=== PATIENT | male | born 1950 | race African-American/Black ===

== ENCOUNTER 2016-09-29 21:14 | Inpatient (IN) | payer MEDICARE, OTHER ==
[~2016-09-29] VITALS: Ht 160 cm; Wt 69.9 kg
--- NOTE | 2016-09-29 21:34 | NUR ---
Patient BIB private ambulance for Medical Clearance and GPS admission. Patient arrives medically cleared from [facility]. Patient arrives on 5150 hold for GD. Per hold, patient became combative during a neurological examination at [facility]. Per hold, patient beleives it is 1940 and that he thought he was at home when he was in [facility]. ER. To room 3A. Original 5150 hold not present, ambulance will return to obtain.
[2016-09-29] MEDS ORDERED: NIAC500T2 PO (22:29)
[2016-09-29] MEDS ORDERED: ATOR10TA PO (22:29)
[2016-09-29] MEDS ORDERED: QUET25TA PO (22:29)
[2016-09-29] MEDS ORDERED: OMEP20CA10 PO (22:29)
[2016-09-29] MEDS ORDERED: BLOO-360 IN (22:29)
[2016-09-29] MEDS ORDERED: ACET-2154 PO (22:29)
[2016-09-29] MEDS ORDERED: MULT1TAB73 PO (22:29)
[2016-09-29] MEDS ORDERED: SITA100T PO (22:29)
[2016-09-29] MEDS ORDERED: DONE10TA11 PO (22:29)
[2016-09-29] MEDS ORDERED: METF500T4 PO (22:29)
[2016-09-29] MEDS ORDERED: LEVE250T2 PO (22:29)
[2016-09-29] MEDS ORDERED: AMLO5TAB4 PO (22:29)
[2016-09-29] MEDS ORDERED: LORA-258 PO (22:29)
[2016-09-29] MEDS ORDERED: ALLO100T PO (22:29)
[2016-09-29] MEDS ORDERED: DOCU100C36 PO (22:29)
--- NOTE | 2016-09-29 23:17 | NUR ---
Pt. admitted to GPS, under care of Dr. Yen Belongs List completed
[2016-09-29] MEDS ORDERED: TEMAZEPAM 7.5 MG CAPSULE PO PRN (23:30)
[2016-09-29] MEDS ORDERED: MAG HYDROX/AL HYDROX/SIMETH 30 ML LIQUID UDC PO PRN (23:30)
[2016-09-29] MEDS ORDERED: MAGNESIUM HYDROXIDE 30 ML LIQUID UDC PO PRN (23:30)
--- NOTE | 2016-09-30 01:00 | NUR ---
ADMITTED 65 YEAR OLD AA MALE ON 5150 FOR GD. UPON FACE TO FACE EVALUATION, PT IS CONFUSED AND DISORGANIZED, SLOW TO RESPOND OR NO RESPONSE AT ALL. DELAYED AND PRESSURED SPEECH, MUMBLING AT TIMES. UNABLE TO SIGN ADMISSION PAPERS. UNKEMPT APPEARANCE, UNABLE TO STATE WHERE HE IS AND WHY HE IS HERE, ADMIT ORDERS OBTAINED FROM PSYCH DOCTOR, WILL CONTINUE TO MONITOR CLOSELY.
[2016-09-30 01:14] VITALS: BP 129/68
[2016-09-30] MEDS ORDERED: LORAZEPAM 1 MG TABLET ONE (01:44)
[2016-09-30] MEDS ORDERED: ACETAMINOPHEN 325 MG TABLET ONE (01:44)
[2016-09-30] MEDS: LORAZEPAM 1 MG TABLET PO PRN (01:46)
[2016-09-30] MEDS: ACETAMINOPHEN 325 MG TABLET PO PRN (01:47)
[2016-09-30 07:30] VITALS: BP 123/72
[2016-09-30] MEDS ORDERED: Medication Not On Formulary EA (Omeprazole 20 MG) PO SCH (10:15)
[2016-09-30] MEDS: LEVETIRACETAM 250 MG TABLET PO SCH ×2 (10:15→17:00)
[2016-09-30] MEDS ORDERED: INSULIN REGULAR, HUMAN 300 UNIT/3 ML VIAL SQ PRN (10:15)
[2016-09-30] MEDS ORDERED: DEXTROSE 50% 50 ML DISP.SYRIN IV PRN (10:15)
[2016-09-30] MEDS ORDERED: Medication Not On Formulary EA (Sitagliptin Phosphate (Januvia) 100 MG) PO SCH (10:15)
[2016-09-30] MEDS: PANTOPRAZOLE SODIUM 40 MG TABLET.DR PO SCH (10:45)
[2016-09-30] MEDS: BLOOD SUGAR DIAGNOSTIC 1 EACH STRIP VI SCH ×3 (11:30→21:35)
[2016-09-30] MEDS: METFORMIN HCL 500 MG TABLET PO SCH ×2 (12:00→17:00)
[2016-09-30 16:00] VITALS: BP 116/58
[2016-09-30] MEDS: DOCUSATE SODIUM 100 MG CAPSULE PO SCH (17:00)
[2016-09-30] MEDS: ATORVASTATIN 10 MG TABLET PO SCH (21:34)
[2016-09-30] MEDS: HALOPERIDOL 2 MG TABLET PO SCH (21:34)
--- NOTE | 2016-09-30 22:00 | NUR ---
received to care, lying in bed, isolative, but pleasant when approached. compliant with medications and staff assistance. no combative or aggressive behavior noted. assisted by staff with feeding the rest of his dinner. fluids given. as of 2199, he appears to be asleep. no distress noted. will continue to monitor closely.
--- NOTE | 2016-10-01 00:13 | NUR ---
PRN RESTORIL WAS GIVEN FOR RESTLESSNESS/INSOMNIA
--- NOTE | 2016-10-01 00:45 | NUR ---
appears to be asleep. no distress noted.
--- NOTE | 2016-10-01 06:00 | NUR ---
slept 8 hours. is now awake. refused am accucheck, and protonix. appears distracted by internal stimuli.
[2016-10-01] MEDS: PANTOPRAZOLE SODIUM 40 MG TABLET.DR PO SCH (06:36)
[2016-10-01] MEDS: BLOOD SUGAR DIAGNOSTIC 1 EACH STRIP VI SCH ×4 (06:36→21:00)
[2016-10-01] MEDS: METFORMIN HCL 500 MG TABLET PO SCH ×3 (08:00→17:00)
[2016-10-01] MEDS ORDERED: Medication Not On Formulary EA (Multivitamins (Multivitamin) 1 EACH) PO SCH (09:00)
[2016-10-01] MEDS: LINAGLIPTIN 5 MG TABLET PO SCH (09:00)
[2016-10-01] MEDS: DIVALPROEX 250 MG TABLET.DR PO SCH ×3 (09:00→17:00)
[2016-10-01] MEDS: HALOPERIDOL 2 MG TABLET PO SCH ×3 (09:00→17:00)
[2016-10-01] MEDS: DOCUSATE SODIUM 100 MG CAPSULE PO SCH ×2 (09:00→17:00)
[2016-10-01] MEDS: LEVETIRACETAM 250 MG TABLET PO SCH ×2 (09:00→17:00)
[2016-10-01] MEDS: MULTIVITAMINS,THERAPEUTIC TABLET PO SCH (09:00)
[2016-10-01] MEDS: AMLODIPINE 5 MG TABLET PO SCH (09:00)
[2016-10-01] MEDS: ALLOPURINOL 100 MG TABLET PO SCH (09:00)
--- NOTE | 2016-10-01 09:28 | NUR ---
Initial discharge instructions: The patient resides at [facility] [[facility] [place] [address] ]. SW will contact the facility to see if they will be accepting the patient back upon discharge. GINGER spoke with the patient's brother Zach Mendiola who stated that the would like for the patient to return to the facility upon discharge. GINGER will speak with the patient, family, and MD regarding most appropriate discharge plan. SS will form a safe and proper discharge.
[2016-10-01 15:29] VITALS: BP 119/64
--- NOTE | 2016-10-01 18:46 | NUR ---
pt resistive all shift to taking meds and having bloog sugar checked cursining at times attempteed to talk pt into taking meds with no avail continue to monitor behavior
[2016-10-01] MEDS: ATORVASTATIN 10 MG TABLET PO SCH (21:00)
[2016-10-02] MEDS: LORAZEPAM 1 MG TABLET PO PRN (06:54)
[2016-10-02] MEDS: ACETAMINOPHEN 325 MG TABLET PO PRN (06:54)
[2016-10-02] MEDS: BLOOD SUGAR DIAGNOSTIC 1 EACH STRIP VI SCH ×3 (06:54→16:30)
[2016-10-02] MEDS: PANTOPRAZOLE SODIUM 40 MG TABLET.DR PO SCH (06:55)
[2016-10-02] MEDS: LEVETIRACETAM 250 MG TABLET PO SCH ×2 (06:59→08:55)
--- NOTE | 2016-10-02 07:06 | NUR ---
Nursing notes:GPS Patient has been refusing to taking meds, including keppra and having bloog sugar (accu-checks).At Approximately 0640, while in bed, patient had a seizure. It lasted approx 30 seconds. vital signs were taken:b/p 154/72mmHg, pulse 100bpm; O2sat 95%, temp 100.2; respiration 20breaths/min. BS 150. Dr. Parker office was called at approx 0645. and left message. at approx 0650 Ativan 1mg PO, Keppra 250mg PO and Tylenol 650mg PO was given to patient. At approx 0654, Dr Calderon called back, he was informed of patient's seizure and temperature. Per Dr. Calderon, to continue encouraging patient to take his medication. He also stated that is elevated temp is due to the seizure. we will continue to monitor.
[2016-10-02 07:30] VITALS: BP 125/83
[2016-10-02] MEDS: HALOPERIDOL 2 MG TABLET PO SCH ×3 (08:55→17:00)
[2016-10-02] MEDS: DIVALPROEX 250 MG TABLET.DR PO SCH ×3 (08:55→17:00)
[2016-10-02] MEDS: LINAGLIPTIN 5 MG TABLET PO SCH (08:55)
[2016-10-02] MEDS: ALLOPURINOL 100 MG TABLET PO SCH (08:55)
[2016-10-02] MEDS: DOCUSATE SODIUM 100 MG CAPSULE PO SCH ×2 (08:56→17:00)
[2016-10-02] MEDS: AMLODIPINE 5 MG TABLET PO SCH (08:56)
[2016-10-02] MEDS: MULTIVITAMINS,THERAPEUTIC TABLET PO SCH (09:01)
[2016-10-02] MEDS: METFORMIN HCL 500 MG TABLET PO SCH ×3 (09:16→17:00)
--- NOTE | 2016-10-02 15:30 | NUR ---
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 MEALS HELD TO PREVENT ASPIRATION PNEUMONIA. DRUM CLEANER ORDERED TO TRANSFER PATIENT TO MEDICAL FLOOR FOR HIGHER LEVEL OF CARE. 1545 DRUM CLEANER NOTIFIED NEED A SITTER WHEN MOVE TO MEDICAL FLOOR. 1600 CHARGE NURSE CALLED ABOUT THE TRANSFER, NO AVAILABLE BED AT THIS TIME. CHARGENURSE WILL CALL WHEN BED IS READY.
[2016-10-02 16:30] VITALS: BP 117/58
--- NOTE | 2016-10-02 20:04 | NUR ---
AT APPROX 1954 PATIENT WAS DISCHARGED FROM [facility] MHU IN STABLE CONDITION TO MED SURG FLOOR ROOM 215. WITH DX SEIZURE. REPORT WAS GIVEN TO MANSOOR URIAS. AT APPROX 2009 A MESSAGE WAS LEFT AT [phone] TO CALL US BACK.
== END 2016-10-02 19:50 | disposition short-term general hospital (02) | DRG 885 ==
LOC: ER 21:15 → GPS 23:17
PROVIDERS: ADMIT Psychiatry & Neurology Psychiatry; ATTEND Internal Medicine
DX: F31.9 Bipolar disorder, unspecified (principal); E11.65 Type 2 diabetes mellitus with hyperglycemia; I69.951 Hemiplegia and hemiparesis following unspecified cerebrovascular disease affecting right dominant side; N39.0 Urinary tract infection, site not specified; E78.5 Hyperlipidemia, unspecified; K21.9 Gastro-esophageal reflux disease without esophagitis; M19.90 Unspecified osteoarthritis, unspecified site; Z79.899 Other long term (current) drug therapy; J44.9 Chronic obstructive pulmonary disease, unspecified; Z91.14 Patient's other noncompliance with medication regimen; F20.9 Schizophrenia, unspecified; M10.9 Gout, unspecified; D64.9 Anemia, unspecified; M62.50 Muscle wasting and atrophy, not elsewhere classified, unspecified site; I10 Essential (primary) hypertension; R56.9 Unspecified convulsions
CPT/HCPCS: 36415; J1815; J3490

== ENCOUNTER 2016-10-02 20:14 | Inpatient (IN) | payer MEDICARE, OTHER ==
[~2016-10-02] VITALS: Ht 160 cm; Wt 69.9 kg
[~2016-10-02 20:14] MED LIST: ACET-2154 PO; ALLO100T PO; AMLO5TAB4 PO; ATOR10TA PO; BLOO-360 IN; DOCU100C36 PO; LEVE250T2 PO; METF500T4 PO; MULT1TAB73 PO; NIAC500T2 PO; OMEP20CA10 PO; SITA100T PO
[2016-10-02 20:30] VITALS: BP 127/70
--- NOTE | 2016-10-02 20:30 | NUR ---
ADMIT NEW PATIENT FROM MHU,TO ROOM 215,C/O SEIZURE,PATIENT CONFUSED,ABLE TO FOLLOW SIMPLE COMMAND,1:1 SITTER AT BEDSIDE.SEIZURE AND FALL PRECAUTIONS MAINTAIN.
--- NOTE | 2016-10-02 21:00 | NUR ---
PATIENT WAS SEEN BY CONTINUE 14 DAYS HOLD,ORDERS RECEIVED.
[2016-10-02] MEDS ORDERED: ACETAMINOPHEN 325 MG TABLET PO PRN (22:00)
--- NOTE | 2016-10-03 00:05 | NUR ---
PATIENT SLEEP WELL, NO ACUTE DISTRESS NOTED.
[2016-10-03 06:00] VITALS: BP 101/59
--- NOTE | 2016-10-03 06:40 | NUR ---
no seizure activity /shift,patient sleep 7hours , 1:1 sitter closely monitor
[2016-10-03] MEDS ORDERED: Medication Not On Formulary EA (Sitagliptin Phosphate (Januvia) 100 MG) PO SCH (09:00)
[2016-10-03] MEDS: AMLODIPINE 5 MG TABLET PO SCH (09:00)
[2016-10-03] MEDS ORDERED: DEXTROSE 50% 50 ML DISP.SYRIN IV PRN (09:45)
[2016-10-03] MEDS: MULTIVITAMINS,THERAPEUTIC TABLET PO SCH (09:53)
[2016-10-03] MEDS: LEVETIRACETAM 500 MG TABLET PO SCH ×2 (09:54→20:31)
[2016-10-03] MEDS: METFORMIN HCL 500 MG TABLET PO SCH ×2 (09:54→17:32)
[2016-10-03] MEDS: ALLOPURINOL 100 MG TABLET PO SCH (09:55)
[2016-10-03] MEDS: LINAGLIPTIN 5 MG TABLET PO SCH (09:55)
[2016-10-03] MEDS: QUETIAPINE FUMARATE 25 MG TABLET PO SCH ×3 (09:55→20:31)
[2016-10-03] MEDS: DOCUSATE SODIUM 100 MG CAPSULE PO SCH ×2 (09:56→17:32)
[2016-10-03 11:16] VITALS: BP 108/62
[2016-10-03 15:21] VITALS: BP 125/62
--- NOTE | 2016-10-03 19:20 | NUR ---
PATIENT BEEN IN BED SLEEPING INTERMITTENTLY, HE HAVE BEEN CALM AND COOPERATIVE WITH MEDICATION. REFUSED BLOOD DRAW. DR. CARLIE CALERO. SITTER AT THE BEDSIDE 1:1 FOR SAFETY. SAFETY AND COMFORT PROVIDED BY STAFF. REPORT GIVEN TO MANSOOR.
[2016-10-03 19:32] VITALS: BP 107/54
--- NOTE | 2016-10-03 19:50 | NUR ---
received patient awake,calm,verbally responsive,continue 14 days hold status,1:1 sitter monitor,vital signs stable,wnl.safety precautions maintain.
[2016-10-03] MEDS ORDERED: ATORVASTATIN 10 MG TABLET PO SCH (21:00)
[2016-10-03] MEDS ORDERED: NIACIN 500 MG TABLET.SA PO SCH (21:00)
[2016-10-04 04:30] VITALS: BP 103/55
[2016-10-04 06:49] LABS: BASOPHILS % (AUTO) 0.5 % (0.0-2.0); EOSINOPHILS # (AUTO) 0.1 K/uL (0.0-0.7); EOSINOPHILS % (AUTO) 1.4 % (0.0-7.0); HEMATOCRIT 40.3 % (40-50); HEMOGLOBIN 13.1 G/DL (14.0-18.0); LYMPHOCYTES # (AUTO) 5.4 K/UL (0.8-4.8); LYMPHOCYTES % (AUTO) 65.1 % (20.5-51.5); MEAN CORPUSCULAR HEMOGLOBIN 26.9 UUG (27.0-31.0); MEAN CORPUSCULAR HGB CONC 32 g/dL (32.0-37.0); MONOCYTES # (AUTO) 0.6 K/UL (0.1-1.30); MONOCYTES % (AUTO) 6.9 % (0.0-11.0); NEUTROPHILS # (AUTO) 2.1 K/UL (1.8-8.9); NEUTROPHILS % (AUTO) 26.1 % (38.5-71.5); PLATELET COUNT (AUTO) 204 K/UL (150-450); RED BLOOD CELL COUNT(AUTO) 4.86 MIL/UL (4.7-6.1); WHITE BLOOD COUNT (AUTO) 8.2 K/UL (4.0-11.2)
[2016-10-04] MEDS: BLOOD SUGAR DIAGNOSTIC 1 EACH STRIP VI SCH ×2 (06:59→08:30)
[2016-10-04 07:21] LABS: THYROID STIMULATING HORMONE 1.853 mIU/mL (0.358-3.740)
--- NOTE | 2016-10-04 07:22 | NUR ---
patient slept well 7 hours ,took all medication,blood sugar 80 .has bowel movement x1
[2016-10-04 07:31] LABS: BILIRUBIN,TOTAL 0.5 mg/dL (0.2-1.0); CREATININE 1.1 mg/dL (0.6-1.3); PHOSPHOROUS 3.8 mg/dL (2.5-4.9); POTASSIUM 4.2 mmol/L (3.5-5.1)
[2016-10-04] MEDS: LINAGLIPTIN 5 MG TABLET PO SCH (08:21)
[2016-10-04] MEDS: MULTIVITAMINS,THERAPEUTIC TABLET PO SCH (08:21)
[2016-10-04] MEDS: METFORMIN HCL 500 MG TABLET PO SCH ×2 (08:21→17:03)
[2016-10-04] MEDS: DOCUSATE SODIUM 100 MG CAPSULE PO SCH ×2 (08:21→16:40)
[2016-10-04] MEDS: QUETIAPINE FUMARATE 25 MG TABLET PO SCH ×2 (08:22→12:14)
[2016-10-04] MEDS: LEVETIRACETAM 500 MG TABLET PO SCH (08:22)
[2016-10-04] MEDS: ALLOPURINOL 100 MG TABLET PO SCH (08:26)
[2016-10-04] MEDS: AMLODIPINE 5 MG TABLET PO SCH (08:27)
--- NOTE | 2016-10-04 08:31 | NUR ---
BLOOD SUGAR WAS CHECKED AT 0700 AND ITS 80.PATIENT IS EATING BREAKFAST AT THE MOMENT WITH NO S/S OF HYPO/HYPERGLYCEMIC REACTIONS.PATIENT IS ALERT AND COOPERATIVE AND COMPLIANT WITH HIS MEDICATIONS WITH NO SEIZURE ACTIVITIES AT THIS TIME.
[2016-10-04 11:57] VITALS: BP 125/62
[2016-10-04] MEDS ORDERED: LEVE500T9 PO (12:27)
[2016-10-04] MEDS ORDERED: DOCU100C36 PO (12:27)
[2016-10-04] MEDS ORDERED: ALLO100T PO (12:27)
[2016-10-04] MEDS ORDERED: ATOR10TA PO (12:27)
[2016-10-04] MEDS ORDERED: METF500T4 PO (12:27)
[2016-10-04] MEDS ORDERED: Blood Sugar Diagnostic VI (12:27)
[2016-10-04] MEDS ORDERED: LINA5TAB PO (12:27)
[2016-10-04] MEDS ORDERED: MULT-24 PO (12:27)
[2016-10-04] MEDS ORDERED: QUET25TA PO ×2 (12:27)
[2016-10-04] MEDS ORDERED: ACET325T53 PO (12:27)
[2016-10-04 15:38] VITALS: BP 114/60
--- NOTE | 2016-10-04 17:04 | NUR ---
NEW ORDER NOTED TO DISCHARGE PATIENT TO MHU TODAY BUT THE UNIT HAS NO EMPTY BED SO PATIENT WILL REMAIN HERE AN OVER FLOW.PATIENT IS AWARE BUT HE IS CONFUSED AND UNABLE TO COMPREHEND.
[2016-10-04] MEDS ORDERED: AMLO5TAB4 PO (18:11)
== END 2016-10-04 17:05 | DRG 101 ==
LOC: MED 20:14
PROVIDERS: ADMIT Internal Medicine; ATTEND Internal Medicine
DX: G40.909 Epilepsy, unspecified, not intractable, without status epilepticus (principal); I69.951 Hemiplegia and hemiparesis following unspecified cerebrovascular disease affecting right dominant side; E44.0 Moderate protein-calorie malnutrition; E11.65 Type 2 diabetes mellitus with hyperglycemia; E78.5 Hyperlipidemia, unspecified; G93.89 Other specified disorders of brain; Z87.440 Personal history of urinary (tract) infections; K21.9 Gastro-esophageal reflux disease without esophagitis; J44.9 Chronic obstructive pulmonary disease, unspecified; I10 Essential (primary) hypertension; Z68.27 Body mass index [BMI] 27.0-27.9, adult; M19.90 Unspecified osteoarthritis, unspecified site; R74.0 Nonspecific elevation of levels of transaminase and lactic acid dehydrogenase [LDH]; E11.22 Type 2 diabetes mellitus with diabetic chronic kidney disease; N18.9 Chronic kidney disease, unspecified; Z91.14 Patient's other noncompliance with medication regimen; F20.9 Schizophrenia, unspecified; F31.9 Bipolar disorder, unspecified; F41.9 Anxiety disorder, unspecified
CPT/HCPCS: 36415; 70450; 83735; 84100; 84443; 85025

== ENCOUNTER 2016-10-04 17:21 | Inpatient (IN) | payer MEDICARE, OTHER ==
[~2016-10-04] VITALS: Ht 160 cm; Wt 69.9 kg
[~2016-10-04 17:21] MED LIST changes: +ACET325T53 PO; +Blood Sugar Diagnostic VI; +LEVE500T9 PO; +LINA5TAB PO; +MULT-24 PO; +QUET25TA PO
--- NOTE | 2016-10-04 17:53 | NUR ---
RECEIVED PATIENT FOR ADMISSION FOR PSYCH OVERFLOW 65 YEARS OLD MALE WITH DX OF PSYCHOSIS PATIENT IS ALERT TO NAME ONLY WITH CONFUSSION AND DISORIENTATION AT THIS TIME.HE HAS A ONE TO ONE SITTER FOR SAFETY PATIENT IS UNABLE TO ASSIST WITH THE ADMISSION PROCESS AT THIS TIME.WILL CONTINUE TO OBSERVE.
[2016-10-04] MEDS ORDERED: AMLO5TAB4 PO (18:11)
[2016-10-04] MEDS ORDERED: ACETAMINOPHEN 325 MG TABLET PO PRN (18:30)
[2016-10-04] MEDS ORDERED: MAG HYDROX/AL HYDROX/SIMETH 30 ML LIQUID UDC PO PRN (18:30)
[2016-10-04] MEDS ORDERED: MAGNESIUM HYDROXIDE 30 ML LIQUID UDC PO PRN (18:30)
[2016-10-04] MEDS ORDERED: TEMAZEPAM 7.5 MG CAPSULE PO PRN (18:30)
--- NOTE | 2016-10-04 19:00 | NUR ---
AWAKE,ALERTX1,QUIET COOPERATIVE,TOOK HIS MEDICATION.WATCHING TV. SITTER AT BEDSIDE.
[2016-10-04 20:00] VITALS: BP 117/77
[2016-10-04] MEDS: LORAZEPAM 1 MG TABLET PO PRN (20:33)
--- NOTE | 2016-10-05 00:11 | NUR ---
PT STILL AWAKE,REFUSED RESTORIL.UNCOOPRATIVE,SWEARING,STILL WATCHING TV.SITTER AT BEDSIDE.
[2016-10-05 05:42] VITALS: BP 120/67
--- NOTE | 2016-10-05 05:57 | NUR ---
PT SLEPT FOR 5 HOURS,ACCUCHECK 91.NO SEIZURES NOTED,SLEEPING SOUNDLY.
[2016-10-05] MEDS: LORAZEPAM 1 MG TABLET PO PRN (08:02)
--- NOTE | 2016-10-05 08:20 | NUR ---
AWAKE ALERT TO SELF WITH CONFUSSION AND DISORIENTATION WITH POOR JUDGEMENT AND ATTEMTS TO GET OUT OF BED AT [facility] FOR FALL RELATED TO INABILITY TO AMBULATE UNABLE TO REDIRECT SO MEDICATED WITH ATIVAN ORDERED AND WILL OBSERVE CALLED AND LEFT A MESSAGE WITH DR LIM VOICE MAIL RE TO RECONCILE PATIENTS MEDICATIONS
--- NOTE | 2016-10-05 09:44 | NUR ---
Svp I have reviewed this patient's psychosocial dated 10/01/16. I can attest to the accuracy of the information therein. There have been no changes since his last assessment. [facility] to a seizure that took place 10/02/16. He was transferred that day (10/02/16) and was then transferred back to the MHU on 10/04/16. DC Plan: The patient resides at [facility] [[address] [place], [place] [id number] ]. GINGER spoke with Marion in admissions at the facility who stated that they will be accepting the patient back upon DC. GINGER spoke with the patient's brother Zach Mendiola who stated that the would like for the patient to return to the facility upon discharge. GINGER will speak with the patient, family, and MD regarding most appropriate discharge plan. SS will form a safe and proper discharge.
--- NOTE | 2016-10-05 10:26 | NUR ---
PATIENT SEEN AND EXAMINED BY JOSSELYN COLLECTION MANAGER AND SHE VERIFIED PATIENT HOME MEDICAL MEDICATIONS AND NOTED.
[2016-10-05] MEDS ORDERED: DEXTROSE 50% 50 ML DISP.SYRIN IV PRN (10:30)
[2016-10-05] MEDS: LINAGLIPTIN 5 MG TABLET PO SCH (11:32)
[2016-10-05] MEDS: BLOOD SUGAR DIAGNOSTIC 1 EACH STRIP VI SCH ×3 (11:32→21:22)
[2016-10-05] MEDS: DOCUSATE SODIUM 100 MG CAPSULE PO SCH ×2 (11:32→16:23)
[2016-10-05] MEDS: LEVETIRACETAM 500 MG TABLET PO SCH ×2 (11:32→21:22)
[2016-10-05] MEDS: ALLOPURINOL 100 MG TABLET PO SCH (11:32)
[2016-10-05] MEDS: AMLODIPINE 5 MG TABLET PO SCH (11:33)
[2016-10-05] MEDS: MULTIVITAMINS,THERAPEUTIC TABLET PO SCH (11:33)
[2016-10-05 11:40] VITALS: BP 110/61
[2016-10-05 16:10] VITALS: BP 118/62
[2016-10-05 16:37] LABS: *BILIRUBIN,URIN NEGATIVE (NEGATIVE); *BLOOD, URINE NEGATIVE (NEGATIVE); *CLARITY,URINE CLEAR (CLEAR); *COLOR,URINE YELLOW (YELLOW); *KETONES,URINE NEGATIVE (NEGATIVE); *PROTEIN,URINE NEGATIVE (NEGATIVE); LEUKOCYTE ESTERASE ,URINE NEGATIVE (NEGATIVE); NITRITE, URINE POSITIVE (NEGATIVE); PH,URINE 5.5 (5.0-8.0); UGLUCOSE NEGATIVE (NEGATIVE)
[2016-10-05 17:11] LABS: BACTERIA,URINE NONE SEEN /HPF (NONE SEEN); RBC,URINE 0-3 /HPF (0-3); SQUAMOUS EPITHELIAL CELL,UR FEW /HPF (NONE SEEN)
[2016-10-05] MEDS: METFORMIN HCL 500 MG TABLET PO SCH ×2 (17:35→17:38)
--- NOTE | 2016-10-05 18:00 | NUR ---
RESTING REFUSED METFORMIN WILL CONTINUE TO OBSERVE.
[2016-10-05 20:00] VITALS: BP 127/72
--- NOTE | 2016-10-05 20:00 | NUR ---
RECEIVED PATIENT AWAKE IN BED WITH 1:1 SITTER AT BEDSIDE. PATIENT IS ALERT TO SELF. FOLLOWS DIRECTIONS. CALM AND APPROPRIATE WHEN APPROACHED. DENIES PAIN OR DISCOMFORT. NO RESP. DISTRESS NOTED. BED ALARM ON. ALL NEEDS ATTENDED. WILL CONTINUE TO MONITOR.
[2016-10-05] MEDS: ATORVASTATIN 10 MG TABLET PO SCH (21:34)
--- NOTE | 2016-10-05 23:15 | NUR ---
DR. POLO AT BEDSIDE TO SEE PATIENT. RECEIVED NEW ORDERS. PATIENT STARTED ON HALDOL 2MG AND DEPAKOTE 250MG. COOPERATIVE AND COMPLIANT WITH TAKING ALL PO MEDICATIONS. WILL CONTINUE TO MONITOR.
[2016-10-05] MEDS: DIVALPROEX 250 MG TABLET.DR PO SCH (23:19)
[2016-10-05] MEDS: HALOPERIDOL 2 MG TABLET PO SCH (23:21)
[2016-10-05] MEDS ORDERED: HALOPERIDOL 1 MG TABLET ONE (23:29)
[2016-10-05] MEDS ORDERED: DIVALPROEX 250 MG TABLET.DR PO ONE (23:29)
--- NOTE | 2016-10-06 01:00 | NUR ---
PATIENT AWAKE IN BED. CALM. SITTER AT BEDSIDE. PATIENT OFFERED SLEEPING PILL BUT PATIENT REFUSED. WILL CONTINUE TO MONITOR.
[2016-10-06] MEDS: PANTOPRAZOLE SODIUM 40 MG TABLET.DR PO SCH (06:03)
--- NOTE | 2016-10-06 06:14 | NUR ---
PATIENT AWAKE IN BED. VERBALLY HOSTILE WHEN APPROACHED. SLEPT AT SMALL INTERVALS. DENIES PAIN. SITTER AT BEDSIDE. SLEPT AT SMALL INTERVALS. SITTER AT BEDSIDE. WILL CONTINUE TO MONITOR.
[2016-10-06] MEDS: BLOOD SUGAR DIAGNOSTIC 1 EACH STRIP VI SCH ×4 (06:30→20:49)
[2016-10-06 07:02] LABS: BASOPHILS % (AUTO) 0.3 % (0.0-2.0); EOSINOPHILS # (AUTO) 0.1 K/uL (0.0-0.7); EOSINOPHILS % (AUTO) 1.5 % (0.0-7.0); HEMATOCRIT 39.2 % (40-50); HEMOGLOBIN 12.8 G/DL (14.0-18.0); LYMPHOCYTES # (AUTO) 6.2 K/UL (0.8-4.8); LYMPHOCYTES % (AUTO) 62.3 % (20.5-51.5); MEAN CORPUSCULAR HEMOGLOBIN 27.4 UUG (27.0-31.0); MEAN CORPUSCULAR HGB CONC 33 g/dL (32.0-37.0); MEAN CORPUSCULAR VOLUME 83.9 FL (82.0-92.0); MONOCYTES # (AUTO) 0.6 K/UL (0.1-1.30); MONOCYTES % (AUTO) 5.7 % (0.0-11.0); NEUTROPHILS % (AUTO) 30.2 % (38.5-71.5); PLATELET COUNT (AUTO) 229 K/UL (150-450); RED BLOOD CELL COUNT(AUTO) 4.68 MIL/UL (4.7-6.1); WHITE BLOOD COUNT (AUTO) 9.9 K/UL (4.0-11.2)
[2016-10-06 07:11] LABS: BILIRUBIN,TOTAL 0.3 mg/dL (0.2-1.0); CREATININE 1.2 mg/dL (0.6-1.3); MAGNESIUM 1.8 mg/dL (1.8-2.4); POTASSIUM 4.5 mmol/L (3.5-5.1); TOTAL PROTEIN, SERUM 7.9 g/dL (6.4-8.2)
--- NOTE | 2016-10-06 07:30 | NUR ---
RECEIVED REPORT FROM HAND ASSEMBLER NURSE. PATIENT IN BED, BED IN LOW POSITION, BED ALARM ON, SIDE RAILS UP X2. SITTER AT BEDSIDE.
[2016-10-06 08:00] VITALS: BP 127/66
[2016-10-06] MEDS: METFORMIN HCL 500 MG TABLET PO SCH ×2 (08:31→17:28)
[2016-10-06] MEDS ORDERED: Medication Not On Formulary EA (Omeprazole 20 MG) PO SCH (09:00)
[2016-10-06] MEDS ORDERED: HALOPERIDOL 2 MG TABLET PO SCH (09:00)
[2016-10-06] MEDS: ALLOPURINOL 100 MG TABLET PO SCH (09:19)
[2016-10-06] MEDS: DIVALPROEX 250 MG TABLET.DR PO SCH ×3 (09:19→17:26)
[2016-10-06] MEDS: LINAGLIPTIN 5 MG TABLET PO SCH (09:19)
[2016-10-06] MEDS: LEVETIRACETAM 500 MG TABLET PO SCH ×2 (09:19→20:43)
[2016-10-06] MEDS: MULTIVITAMINS,THERAPEUTIC TABLET PO SCH (09:19)
[2016-10-06] MEDS: AMLODIPINE 5 MG TABLET PO SCH (09:19)
[2016-10-06] MEDS: DOCUSATE SODIUM 100 MG CAPSULE PO SCH ×2 (09:20→17:26)
[2016-10-06] MEDS: HALOPERIDOL 2 MG TABLET PO SCH ×3 (09:24→17:26)
[2016-10-06 12:52] VITALS: BP 119/66
--- NOTE | 2016-10-06 15:00 | NUR ---
PATIENTS AGITATION CONTINUED TO ESCALATE THROUGHOUT THE DAY, AT THIS TIME PATIENT IS CURSING AT ROOM MATE, AND 1 TO 1 SITTER. ADMINISTERED ATIVAN TO HELP REDUCE PATIENTS ANXIETY AND AGITATION.
[2016-10-06] MEDS: LORAZEPAM 1 MG TABLET PO PRN (15:31)
[2016-10-06 16:00] VITALS: BP 130/85
--- NOTE | 2016-10-06 18:12 | NUR ---
PATIENT CALM AND COOPERATIVE AT THIS TIME, BED IN LOW POSITION, SIDE RAILS UP X2, BED ALARM ON AND SITTER AT BEDSIDE.
[2016-10-06 19:21] VITALS: BP 110/60
--- NOTE | 2016-10-06 19:30 | NUR ---
RECEIVED PATIENT CALM AND LAYING COMFORTABLE IN THE BED. SITTER AT BEDSIDE. ALERT TO SELF ONLY. SAFETY INITIATED. CALL LIGHT WITHIN REACH. WILL CONTINUE TO MONITOR.
[2016-10-06] MEDS: CEPHALEXIN MONOHYDRATE 500 MG CAPSULE PO SCH (20:43)
[2016-10-06] MEDS: ATORVASTATIN 10 MG TABLET PO SCH (20:43)
--- NOTE | 2016-10-07 00:35 | NUR ---
ENDORSED AND REPORT GIVEN TO KATHY MAX. PATIENT WAS COMBATIVE SO THE ENROLLMENT ADVISOR EVI AND I HAD TO TRANSFER THE PATIENT WITH THE BED. NO ACUTE DISTRESS NOTED. BELONGINGS LIST CHECKED AND FOLLOWED THE PATIENT TO ROOM 137A.
--- NOTE | 2016-10-07 00:45 | NUR ---
Nurses notes:GPS Patient was transfer to MHU from med surg 2nd floor at appox. 0030. At time of transfer, patient was in stable condition with no complains of pain and discomfort. we will continue to monitor.
[2016-10-07] MEDS: BLOOD SUGAR DIAGNOSTIC 1 EACH STRIP VI SCH ×4 (06:40→21:43)
[2016-10-07] MEDS: PANTOPRAZOLE SODIUM 40 MG TABLET.DR PO SCH (06:57)
[2016-10-07 07:30] VITALS: BP 120/64
[2016-10-07] MEDS: LEVETIRACETAM 500 MG TABLET PO SCH ×2 (08:45→21:43)
[2016-10-07] MEDS: DIVALPROEX 250 MG TABLET.DR PO SCH ×3 (08:45→17:02)
[2016-10-07] MEDS: CEPHALEXIN MONOHYDRATE 500 MG CAPSULE PO SCH ×2 (08:45→21:43)
[2016-10-07] MEDS: DOCUSATE SODIUM 100 MG CAPSULE PO SCH ×2 (08:45→17:02)
[2016-10-07] MEDS: METFORMIN HCL 500 MG TABLET PO SCH ×2 (08:45→17:25)
[2016-10-07] MEDS: HALOPERIDOL 2 MG TABLET PO SCH ×4 (08:45→17:02)
[2016-10-07] MEDS: MULTIVITAMINS,THERAPEUTIC TABLET PO SCH (08:45)
[2016-10-07] MEDS: ALLOPURINOL 100 MG TABLET PO SCH (08:45)
[2016-10-07] MEDS: LINAGLIPTIN 5 MG TABLET PO SCH (08:55)
[2016-10-07] MEDS: AMLODIPINE 5 MG TABLET PO SCH (08:55)
[2016-10-07 16:00] VITALS: BP 132/70
[2016-10-07] MEDS: ATORVASTATIN 10 MG TABLET PO SCH (21:43)
[2016-10-08] MEDS: PANTOPRAZOLE SODIUM 40 MG TABLET.DR PO SCH (07:29)
[2016-10-08 07:30] VITALS: BP 117/65
[2016-10-08] MEDS: BLOOD SUGAR DIAGNOSTIC 1 EACH STRIP VI SCH ×4 (07:31→20:59)
[2016-10-08] MEDS: DOCUSATE SODIUM 100 MG CAPSULE PO SCH ×2 (08:56→17:23)
[2016-10-08] MEDS: MULTIVITAMINS,THERAPEUTIC TABLET PO SCH (08:56)
[2016-10-08] MEDS: LINAGLIPTIN 5 MG TABLET PO SCH (08:56)
[2016-10-08] MEDS: METFORMIN HCL 500 MG TABLET PO SCH ×2 (08:56→17:23)
[2016-10-08] MEDS: DIVALPROEX 250 MG TABLET.DR PO SCH ×3 (08:57→17:23)
[2016-10-08] MEDS: LEVETIRACETAM 500 MG TABLET PO SCH ×2 (08:57→20:41)
[2016-10-08] MEDS: ALLOPURINOL 100 MG TABLET PO SCH (08:57)
[2016-10-08] MEDS: AMLODIPINE 5 MG TABLET PO SCH (08:57)
[2016-10-08] MEDS: CEPHALEXIN MONOHYDRATE 500 MG CAPSULE PO SCH ×2 (08:57→20:41)
[2016-10-08] MEDS: HALOPERIDOL 2 MG TABLET PO SCH ×3 (08:57→17:23)
[2016-10-08] MEDS: Z GUARD REMEDY PASTE 57 GM TUBE TOP SCH ×2 (10:14→20:49)
[2016-10-08 16:00] VITALS: BP 148/66
[2016-10-08] MEDS: ATORVASTATIN 10 MG TABLET PO SCH (20:41)
[2016-10-08 20:44] VITALS: BP 121/68
[2016-10-09] MEDS: BLOOD SUGAR DIAGNOSTIC 1 EACH STRIP VI SCH ×4 (06:41→20:32)
[2016-10-09] MEDS: PANTOPRAZOLE SODIUM 40 MG TABLET.DR PO SCH (06:50)
[2016-10-09 07:30] VITALS: BP 117/65
[2016-10-09] MEDS: CEPHALEXIN MONOHYDRATE 500 MG CAPSULE PO SCH ×3 (08:49→20:11)
[2016-10-09] MEDS: MULTIVITAMINS,THERAPEUTIC TABLET PO SCH ×2 (08:49→09:00)
[2016-10-09] MEDS: DIVALPROEX 250 MG TABLET.DR PO SCH ×5 (08:49→18:46)
[2016-10-09] MEDS: METFORMIN HCL 500 MG TABLET PO SCH ×4 (08:49→18:46)
[2016-10-09] MEDS: LEVETIRACETAM 500 MG TABLET PO SCH ×3 (08:49→20:11)
[2016-10-09] MEDS: AMLODIPINE 5 MG TABLET PO SCH ×2 (08:49→09:00)
[2016-10-09] MEDS: DOCUSATE SODIUM 100 MG CAPSULE PO SCH ×3 (08:49→17:00)
[2016-10-09] MEDS: ALLOPURINOL 100 MG TABLET PO SCH ×2 (08:49→09:00)
[2016-10-09] MEDS: LINAGLIPTIN 5 MG TABLET PO SCH ×2 (08:50→09:00)
[2016-10-09] MEDS: Z GUARD REMEDY PASTE 57 GM TUBE TOP SCH ×2 (08:50→20:09)
[2016-10-09] MEDS: HALOPERIDOL 2 MG TABLET PO SCH ×5 (08:54→18:46)
[2016-10-09 15:40] VITALS: BP 124/57
[2016-10-09] MEDS: ATORVASTATIN 10 MG TABLET PO SCH (20:11)
[2016-10-09 20:28] VITALS: BP 121/64
[2016-10-10] MEDS: BLOOD SUGAR DIAGNOSTIC 1 EACH STRIP VI SCH ×3 (06:31→16:47)
[2016-10-10] MEDS: PANTOPRAZOLE SODIUM 40 MG TABLET.DR PO SCH (06:37)
[2016-10-10 07:30] VITALS: BP 108/67
[2016-10-10] MEDS: HALOPERIDOL 2 MG TABLET PO SCH ×3 (08:55→17:09)
[2016-10-10] MEDS: MULTIVITAMINS,THERAPEUTIC TABLET PO SCH (08:55)
[2016-10-10] MEDS: LEVETIRACETAM 500 MG TABLET PO SCH ×2 (08:55→20:19)
[2016-10-10] MEDS: LINAGLIPTIN 5 MG TABLET PO SCH (08:55)
[2016-10-10] MEDS: DIVALPROEX 250 MG TABLET.DR PO SCH ×3 (08:55→17:09)
[2016-10-10] MEDS: CEPHALEXIN MONOHYDRATE 500 MG CAPSULE PO SCH ×2 (08:56→20:19)
[2016-10-10] MEDS: ALLOPURINOL 100 MG TABLET PO SCH (08:56)
[2016-10-10] MEDS: DOCUSATE SODIUM 100 MG CAPSULE PO SCH ×2 (08:56→17:09)
[2016-10-10] MEDS: METFORMIN HCL 500 MG TABLET PO SCH ×2 (08:56→17:09)
[2016-10-10] MEDS: AMLODIPINE 5 MG TABLET PO SCH (08:57)
[2016-10-10] MEDS: Z GUARD REMEDY PASTE 57 GM TUBE TOP SCH ×2 (09:07→20:18)
[2016-10-10 16:00] VITALS: BP 122/66
[2016-10-10] MEDS ORDERED: DEXTROSE 50% 50 ML DISP.SYRIN IV PRN (18:45)
[2016-10-10] MEDS: ATORVASTATIN 10 MG TABLET PO SCH (20:19)
[2016-10-10 21:47] VITALS: BP 120/74
[2016-10-11] MEDS: BLOOD SUGAR DIAGNOSTIC 1 EACH STRIP VI SCH ×3 (06:35→16:36)
[2016-10-11] MEDS: PANTOPRAZOLE SODIUM 40 MG TABLET.DR PO SCH (06:35)
[2016-10-11 07:30] VITALS: BP 112/60
[2016-10-11] MEDS: DIVALPROEX 250 MG TABLET.DR PO SCH ×3 (08:42→16:42)
[2016-10-11] MEDS: HALOPERIDOL 2 MG TABLET PO SCH ×3 (08:42→16:42)
[2016-10-11] MEDS: CEPHALEXIN MONOHYDRATE 500 MG CAPSULE PO SCH ×2 (08:42→20:28)
[2016-10-11] MEDS: METFORMIN HCL 500 MG TABLET PO SCH ×2 (08:42→17:09)
[2016-10-11] MEDS: LINAGLIPTIN 5 MG TABLET PO SCH (08:42)
[2016-10-11] MEDS: DOCUSATE SODIUM 100 MG CAPSULE PO SCH ×2 (08:42→16:42)
[2016-10-11] MEDS: MULTIVITAMINS,THERAPEUTIC TABLET PO SCH (08:42)
[2016-10-11] MEDS: ALLOPURINOL 100 MG TABLET PO SCH (08:42)
[2016-10-11] MEDS: LEVETIRACETAM 500 MG TABLET PO SCH ×2 (08:42→20:28)
[2016-10-11] MEDS: AMLODIPINE 5 MG TABLET PO SCH (08:43)
[2016-10-11] MEDS: Z GUARD REMEDY PASTE 57 GM TUBE TOP SCH ×2 (08:43→20:29)
[2016-10-11 16:00] VITALS: BP 112/58
[2016-10-11] MEDS: ATORVASTATIN 10 MG TABLET PO SCH (20:28)
[2016-10-11 20:58] VITALS: BP 110/60
[2016-10-12] MEDS: PANTOPRAZOLE SODIUM 40 MG TABLET.DR PO SCH (06:32)
[2016-10-12] MEDS: BLOOD SUGAR DIAGNOSTIC 1 EACH STRIP VI SCH ×3 (06:33→16:39)
--- NOTE | 2016-10-12 06:49 | NUR ---
Nurse's note:GPS Patient's inicial Accu-checks AC was 66 at 0625. 4oz of orange juice was given at approx 0630. Accuchecks BS was rechecks at 0645 and was 106. We will continue to monitor.
[2016-10-12 07:30] VITALS: BP 123/63
[2016-10-12] MEDS: METFORMIN HCL 500 MG TABLET PO SCH ×2 (08:36→17:16)
[2016-10-12] MEDS: CEPHALEXIN MONOHYDRATE 500 MG CAPSULE PO SCH (08:36)
[2016-10-12] MEDS: LEVETIRACETAM 500 MG TABLET PO SCH (08:36)
[2016-10-12] MEDS: MULTIVITAMINS,THERAPEUTIC TABLET PO SCH (08:36)
[2016-10-12] MEDS: HALOPERIDOL 2 MG TABLET PO SCH ×3 (08:36→16:49)
[2016-10-12] MEDS: DIVALPROEX 250 MG TABLET.DR PO SCH ×3 (08:36→16:48)
[2016-10-12] MEDS: AMLODIPINE 5 MG TABLET PO SCH (08:37)
[2016-10-12] MEDS: LINAGLIPTIN 5 MG TABLET PO SCH (08:37)
[2016-10-12] MEDS: ALLOPURINOL 100 MG TABLET PO SCH (08:37)
[2016-10-12] MEDS: Z GUARD REMEDY PASTE 57 GM TUBE TOP SCH (08:38)
[2016-10-12] MEDS: DOCUSATE SODIUM 100 MG CAPSULE PO SCH ×2 (08:40→16:48)
[2016-10-12 08:41] LABS: CREATININE 1.1 mg/dL (0.6-1.3); POTASSIUM 4.7 mmol/L (3.5-5.1)
[2016-10-12 15:37] VITALS: BP 122/68
--- NOTE | 2016-10-12 19:31 | NUR ---
GPS: Pt. discharged to [facility] accompanied by 3 attendants from [facility]. Left in stable condition with all his belongings. Report given to accepting facility earlier.
== END 2016-10-12 19:35 | DRG 885 ==
LOC: GPSOV 17:21 → GPS 10-07 00:34
PROVIDERS: ADMIT Internal Medicine; ATTEND Internal Medicine
DX: F39 Unspecified mood [affective] disorder (principal); E11.65 Type 2 diabetes mellitus with hyperglycemia; I69.351 Hemiplegia and hemiparesis following cerebral infarction affecting right dominant side; E44.0 Moderate protein-calorie malnutrition; N39.0 Urinary tract infection, site not specified; J44.9 Chronic obstructive pulmonary disease, unspecified; Z68.27 Body mass index [BMI] 27.0-27.9, adult; G93.89 Other specified disorders of brain; K21.9 Gastro-esophageal reflux disease without esophagitis; M19.90 Unspecified osteoarthritis, unspecified site; M62.59 Muscle wasting and atrophy, not elsewhere classified, multiple sites; D63.8 Anemia in other chronic diseases classified elsewhere; F20.9 Schizophrenia, unspecified; B96.20 Unspecified Escherichia coli [E. coli] as the cause of diseases classified elsewhere; G40.909 Epilepsy, unspecified, not intractable, without status epilepticus; R74.0 Nonspecific elevation of levels of transaminase and lactic acid dehydrogenase [LDH]; T50.905A Adverse effect of unspecified drugs, medicaments and biological substances, initial encounter; Y92.89 Other specified places as the place of occurrence of the external cause; E78.5 Hyperlipidemia, unspecified
CPT/HCPCS: 36415; 71010; 83735; 84100; 85025; 87077; 87086; 97110; 97161; 97530; J3490